=== PATIENT | male | born 1985 | race Caucasian/White ===

== ENCOUNTER 2016-11-10 15:41 | Emergency (ER) | payer BC ==
[2016-11-10 15:53] VITALS: BP 134/63
[2016-11-10] MEDS ORDERED: Albuterol/Ipratropium 3.0-0.5 MG/3 ML Neb Soln NEB ONE (16:00)
[2016-11-10] MEDS ORDERED: methylPREDNISolone Sodium Succinate 125 MG/2 ML SDV IM ONE (16:00)
--- NOTE | 2016-11-10 16:09 | EDM.PDOC ---
ED HISTORY OF PRESENT ILLNESS - General Chief Complaint: Respiratory Problem Stated Complaint: WANTS TO GET CHECK FOR HIS ASTHMA Time Seen by Provider: 11/10/16 15:49 - History of Present Illness INITIAL COMMENTS - FREE TEXT/NARRATIVE: HISTORY AND PHYSICAL: History of present illness: This is a 31-year-old male with a known history of asthma follows with a physician at home in [place] and presents with feeling like his asthma is not well controlled over the last 2-3 days. The patient is on preventatives and has an albuterol nebulizer and inhaler that he can use for rescue. He has not had any flu symptoms such as cough productive of phlegm fevers sore throat runny nose or body aches. Patient's been eating and drinking normally. Patient states that he has had increased exposure to air pollutants at his job over the last several days and despite doing the treatments that he has been doing he does not feel like his asthma is opening out. He was on prednisone several months ago but only 5 days worth and he feels that he needs more prednisone. the patient doesn't have a local family doctor but does have a doctor at home. Patient did get his flu shot this year. Review of systems: As per history of present illness and below otherwise all systems reviewed and negative. Past medical history: As per history of present illness and as reviewed below otherwise noncontributory. Surgical history: As per history of present illness and as reviewed below otherwise noncontributory. Social history: No reported history of drug or alcohol abuse. Family history: As per history of present illness and as reviewed below otherwise noncontributory. Physical exam: General: Well-developed well-nourished male who is speaking clearly without breathlessness or distress. He is nontoxic and moves easily in the ED. Vital signs were noted by me from triage HEENT: Atraumatic, normocephalic, negative for conjunctival pallor or scleral icterus, mucous membranes moist, throat clear, neck supple, nontender, trachea midline. Lungs: Breath sounds through all lung [place] but worse in the bases and scattered fine wheeze and coarse breath sounds are appreciated, there is no work or breathing or sensory muscle use,, breath sounds equal bilaterally, chest nontender. Heart: S1S2, regular, negative for clicks, rubs, or JVD. Abdomen: Soft, nondistended, nontender. NABS Genitourinary: Deferred. Rectal: Deferred. Extremities: Atraumatic, negative for cords or calf pain. Neurovascular unremarkable. Neuro: Awake, alert, oriented. Cranial nerves II through XII unremarkable. Cerebellum unremarkable. Motor and sensory unremarkable throughout. Exam nonfocal. Diagnostics: [] Therapeutics: DuoNeb Solu-Medrol Treatment patient is moving air much better and feels better. Discussed prednisone for home hydration and need for followup. Impression: Asthma exacerbation Definitive disposition and diagnosis as appropriate pending reevaluation and review of above. - Related Data Allergies/ADRs: Allergies Allergy/AdvReac Type Severity Reaction Status Date / Time carrot Allergy Hives Verified 11/10/16 15:49 tree nut Allergy swelling Verified 11/10/16 15:49 and hives Home Meds: Home Meds Fluticasone/Vilanterol [Breo Ellipta 200-25 Mcg INH] 1 device PO DAILY 10/11/16 [History] Past Medical History Cardiovascular History: Reports: None Respiratory History: Reports: Asthma Gastrointestinal History: Reports: None Genitourinary History: Reports: None Musculoskeletal History: Reports: None Neurological History: Reports: None Psychiatric History: Reports: None Endocrine/Metabolic History: Reports: None Dermatologic History: Reports: None - Infectious Disease History Infectious Disease History: Reports: Chicken pox - Past Surgical History HEENT Surgical History: Reports: None GI Surgical History: Reports: Appendectomy Social & Family History - Family History Family Medical History: Noncontributory - Tobacco Use Smoking Status *Q: Never Smoker Second Hand Smoke Exposure: No - Caffeine Use Caffeine Use: Reports: Energy drinks - Recreational Drug Use Recreational Drug Use: No ED ROS GENERAL - Review of Systems Review Of Systems: ROS reveals no pertinent complaints other than HPI. ED EXAM, GENERAL - Physical Exam Exam: See Below (See dictation) Course - Vital Signs Last Recorded V/S: Last Vital Signs Temp 37.2 C 11/10/16 15:49 Pulse 100 11/10/16 15:49 Resp 18 11/10/16 15:49 BP 134/63 11/10/16 15:49 Pulse Ox 96 11/10/16 15:49 - Orders/Labs/Meds Orders: Active Orders 24 hr Category Date Time Status RT Aerosol Therapy [RC] ASDIRECTED Care 11/10/16 16:00 Active Meds: Medications Discontinued Medications Generic Name Dose Route Start Last Admin Trade Name Radha PRN Reason Stop Dose Admin Albuterol/Ipratropium 3 ml 11/10/16 16:00 11/10/16 16:05 Duoneb 3.0-0.5 Mg/3 Ml NEB 11/10/16 16:01 3 ml ONETIME ONE Administration Methylprednisolone Sodium Succinate 125 mg 11/10/16 16:00 11/10/16 16:19 Solu-Medrol IM 11/10/16 16:01 125 mg ONETIME ONE Administration Departure - Departure Time of Disposition: 16:30 Disposition: Home, Self-Care 01 Condition: good Clinical Impression: Acute asthma Referrals: PCP,None [Primary Care Provider] - Forms: ED Department Discharge Additional Instructions: The following information is given to patients seen in the emergency department who are being discharged to home. This information is to outline your options for follow-up care. We provide all patients seen in our emergency department with a follow-up referral. The need for follow-up, as well as the timing and circumstances, are variable depending upon the specifics of your emergency department visit. If you don't have a primary care physician on staff, we will provide you with a referral. We always advise you to contact your personal physician following an emergency department visit to inform them of the circumstance of the visit and for follow-up with them and/or the need for any referrals to a consulting specialist. The emergency department will also refer you to a specialist when appropriate. This referral assures that you have the opportunity for followup care with a specialist. All of these measure are taken in an effort to provide you with optimal care, which includes your followup. Under all circumstances we always encourage you to contact your private physician who remains a resource for coordinating your care. When calling for followup care, please make the office aware that this follow-up is from your recent emergency room visit. If for any reason you are refused follow-up, please contact the [facility] emergency department at and ask to speak to the emergency department charge nurse. [facility] Primary care- Internal Medicine and Family [address] [address] Please use all your home meds for prevention of further exacerbation of asthma. 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 Please take prednisone as directed and start her first dose tomorrow. Please push hydration and return to ER as needed and as discussed. Call and followup with one of our clinic doctors or followup with your doctor at home - My Orders Last 24 Hours: My Active Orders 11/10/16 16:00 RT Aerosol Therapy [RC] ASDIRECTED - Assessment/Plan Last 24 Hours: My Active Orders 11/10/16 16:00 RT Aerosol Therapy [RC] ASDIRECTED
== END 2016-11-10 16:40 | disposition home or self-care (01) ==
LOC: MW.ED 15:41
DX: J45.909 Unspecified asthma, uncomplicated (principal); Z90.49 Acquired absence of other specified parts of digestive tract
CPT/HCPCS: 94664; 96372; 99284; J2930

== ENCOUNTER 2017-07-28 17:34 | Emergency (ER) | payer BC ==
[2017-07-28] MEDS ORDERED: Albuterol/Ipratropium 3.0-0.5 MG/3 ML Neb Soln NEB ONE (17:48)
[2017-07-28] MEDS ORDERED: methylPREDNISolone Sodium Succinate 125 MG/2 ML SDV IM ONE (17:48)
--- NOTE | 2017-07-28 17:49 | EDM.PDOC ---
ED HPI GENERAL MEDICAL PROBLEM - General Chief Complaint: Respiratory Problem Stated Complaint: issues with asthma Time Seen by Provider: 07/28/17 17:48 Source of Information: Reports: Patient - History of Present Illness INITIAL COMMENTS - FREE TEXT/NARRATIVE: HISTORY AND PHYSICAL: History of present illness: [Patient with asthma presents with wheeze and shortness of breath with exertion , is from [place] the temperature is been more moderate up to 70 between 50 and 70 on coming in [place] over the last 2-3 days as well as been getting worse his family also all has upper respiratory symptoms he is developed cough no fever nausea vomiting chills sweats no chest pain headache dizziness or palpitation no bowel or urine symptoms Previous intubation secondary to an allergic reaction with 3 kn ] Review of systems: As per history of present illness and below otherwise all systems reviewed and negative. Past medical history: As per history of present illness and as reviewed below otherwise noncontributory. Surgical history: As per history of present illness and as reviewed below otherwise noncontributory. Social history: No reported history of drug or alcohol abuse. Family history: As per history of present illness and as reviewed below otherwise noncontributory. Patient in no distress whatsoever Physical exam: HEENT: Atraumatic, normocephalic, pupils reactive, negative for conjunctival pallor or scleral icterus, mucous membranes moist, throat clear, neck supple, nontender, trachea midline. No stridor Lungs: Clear to auscultation, breath sounds equal bilaterally, chest nontender. No retractions or tripoding no pursed lips no stridor Heart: S1S2, regular, negative for clicks, rubs, or JVD. Abdomen: Soft, nondistended, nontender. Negative for masses or hepatosplenomegaly. Negative for costovertebral tenderness. Pelvis: Stable nontender. Genitourinary: Deferred. Rectal: Deferred. Extremities: Atraumatic, negative for cords or calf pain. Neurovascular unremarkable. Neuro: Awake, alert, oriented. Cranial nerves II through XII unremarkable. Cerebellum unremarkable. Motor and sensory unremarkable throughout. Exam nonfocal. Diagnostics: [Chest 2 views ] Therapeutics: [A Medrol 125 mg IM DuoNeb Z-Stefano 250 mg Patient has DuoNeb's and albuterol nebs at his disposal he uses 4 times a day and when necessary the albuterol Prednisone taper 40 mg 3 days 30 mg 3 days 20 mg 3 days 10 mg 3 days then stop Return if symptoms persist or worsen or new concerning symptoms develop ] Impression: []Asthma exacerbation Slight infiltrate on chest x-ray will follow radiology interpretation Definitive disposition and diagnosis as appropriate pending reevaluation and review of above. Abdominal Pain Score (Numeric/FACES): 6 - Related Data Allergies Allergy/AdvReac Type Severity Reaction Status Date / Time carrot Allergy Hives Verified 07/28/17 17:47 tree nut Allergy swelling Verified 07/28/17 17:47 and hives Home Meds: Home Meds Fluticasone/Vilanterol [Breo Ellipta 200-25 Mcg INH] 1 device PO DAILY 10/11/16 [History] Albuterol Sulfate 1 dose INH Q6HR PRN 07/28/17 [History] Albuterol Sulfate [Ventolin Hfa] 2 puff INH Q4HR PRN 07/28/17 [History] Albuterol/Ipratropium [DuoNeb 3.0-0.5 MG/3 ML] 1 dose INH Q6HR PRN 07/28/17 [ History] Past Medical History Cardiovascular History: Reports: None Respiratory History: Reports: Asthma Gastrointestinal History: Reports: None Genitourinary History: Reports: None Musculoskeletal History: Reports: None Neurological History: Reports: None Psychiatric History: Reports: None Endocrine/Metabolic History: Reports: None Dermatologic History: Reports: None - Infectious Disease History Infectious Disease History: Reports: Chicken Pox - Past Surgical History HEENT Surgical History: Reports: None GI Surgical History: Reports: Appendectomy Social & Family History - Family History Family Medical History: Noncontributory - Tobacco Use Smoking Status *Q: Never Smoker Second Hand Smoke Exposure: No - Caffeine Use Caffeine Use: Reports: Energy Drinks - Recreational Drug Use Recreational Drug Use: No ED ROS GENERAL - Review of Systems Review Of Systems: ROS reveals no pertinent complaints other than HPI. ED EXAM, GENERAL - Physical Exam Exam: See Below Course - Vital Signs Last Recorded V/S: Last Vital Signs Temp 36.1 C 07/28/17 17:45 Pulse 115 H 07/28/17 17:45 Resp 18 07/28/17 17:45 BP 129/93 H 07/28/17 17:45 Pulse Ox 95 07/28/17 17:45 - Orders/Labs/Meds Orders: Active Orders 24 hr Category Date Time Status RT Aerosol Therapy [RC] ASDIRECTED Care 07/28/17 17:48 Active Chest 2V [CR] Stat Exams 07/28/17 17:48 Taken Meds: Medications Discontinued Medications Generic Name Dose Route Start Last Admin Trade Name Radha PRN Reason Stop Dose Admin Albuterol/Ipratropium 3 ml 07/28/17 17:48 07/28/17 18:10 Duoneb 3.0-0.5 Mg/3 Ml NEB 07/28/17 17:49 3 ml ONETIME ONE Administration Methylprednisolone Sodium Succinate 125 mg 07/28/17 17:48 07/28/17 18:06 Solu-Medrol IM 07/28/17 17:49 125 mg ONETIME ONE Administration Departure - Departure Time of Disposition: 18:49 Disposition: Home, Self-Care 01 Condition: Good Clinical Impression: Asthma exacerbation - Discharge Information Referrals: PCP,None [Primary Care Provider] - Forms: ED Department Discharge Additional Instructions: Medication as prescribed Continue nebulizers as scheduled Return if symptoms persist or worsen or new concerning symptoms develop Follow-up with primary care in 2 weeks sooner as needed The following information is given to patients seen in the emergency department who are being discharged to home. This information is to outline your options for follow-up care. We provide all patients seen in our emergency department with a follow-up referral. The need for follow-up, as well as the timing and circumstances, are variable depending upon the specifics of your emergency department visit. If you don't have a primary care physician on staff, we will provide you with a referral. We always advise you to contact your personal physician following an emergency department visit to inform them of the circumstance of the visit and for follow-up with them and/or the need for any referrals to a consulting specialist. The emergency department will also refer you to a specialist when appropriate. This referral assures that you have the opportunity for follow-up care with a specialist. All of these measure are taken in an effort to provide you with optimal care, which includes your follow-up. Under all circumstances we always encourage you to contact your private physician who remains a resource for coordinating your care. When calling for follow-up care, please make the office aware that this follow-up is from your recent emergency room visit. If for any reason you are refused follow-up, please contact the [facility] emergency department at and asked to speak to the emergency department charge nurse. - My Orders Last 24 Hours: My Active Orders 07/28/17 17:48 RT Aerosol Therapy [RC] ASDIRECTED Chest 2V [CR] Stat - Assessment/Plan Last 24 Hours: My Active Orders 07/28/17 17:48 RT Aerosol Therapy [RC] ASDIRECTED Chest 2V [CR] Stat
[2017-07-28 19:05] VITALS: BP 136/88
--- NOTE | 2017-07-29 10:42 | CR ---
EXAM DATE: 07/28/17 PATIENT'S AGE: 32 Patient: BRENT MCKENNA Facility: [place], [place] Site . Site : 1985 Study: XRay Chest [id number] 6:37:22 PM Ordering Physician: Jodie Ramon Final Report: INDICATION: asthma, dyspnea TECHNIQUE: Chest 2 views COMPARISON: October 11, 2016 FINDINGS: Cardiovascular and mediastinum: Heart size and vasculature are normal in caliber and appearance. Mediastinum is within normal limits. Lungs and pleural spaces: No focal consolidation. No sign of pleural effusion. No pneumothorax. Bones and soft tissues: No significant findings. IMPRESSION: No acute cardiopulmonary disease. Dictated by Yair Vieyra MD @ 07/28/2017 7:07:45 PM Dictated by: Yair Vieyra MD @ 07/28/2017 19:07:50 (Electronic Signature) Report Signed by Proxy. [facility]
== END 2017-07-28 19:00 | disposition home or self-care (01) ==
LOC: MW.ED 17:34
DX: J45.901 Unspecified asthma with (acute) exacerbation (principal)
CPT/HCPCS: 71020; 94640; 96372; 99285; J2930; 99282